=== PATIENT | female | born 1990 | race Caucasian/White ===

== ENCOUNTER → 2017-06-21 | Outpatient (CLI) | payer BC ==
[~2017-06-21] MED LIST: AMPDEX10 PO; Augmentin 875-1 EACH PO; HYDACE5 PO; KETO10 PO; MULVITMINE PO; ONDA8 PO; OXYACE5T PO; OXYC1L PO; PROM25 PO; RXONDA4ODT MM; TRAM50 PO
[2017-06-21 15:05] LABS: Specimen Source CERVIX
[2017-06-21 17:07] LABS: Candida species (DNA Probe) Negative (NEGATIVE); G. vaginalis (DNA Probe) Negative (NEGATIVE); T. vaginalis (DNA Probe) Negative (NEGATIVE)
[2017-06-23 00:01] LABS: Source Cervix
== END ==
LOC: LAB SHORT 15:02
PROVIDERS: Family Medicine
DX: N39.0 Urinary tract infection, site not specified (principal)
CPT/HCPCS: 87077; 87086; 87186; 87480; 87491; 87510; 87591; 87660